=== PATIENT | female | born 2000 | race African-American/Black ===

== ENCOUNTER 2019-03-26 14:00 | Emergency (ER) | payer MEDICAID ==
[~2019-03-26] VITALS: Ht 167.6 cm; Wt 76.7 kg
[2019-03-26 14:12] VITALS: BP 119/69
[2019-03-26 14:42] LABS: Basophils # (auto) 0 uL; Basophils % (auto) 0.4 % (0.0-2.0); Eosinophils # (auto) 0.1 uL; Eosinophils % (auto) 0.5 % (0.0-7.0); Hematocrit 38.9 % (36.0-46.0); Hemoglobin 12.7 g/dL (12.2-16.2); Lymphocytes # (auto) 1.1 uL; Lymphocytes % (auto) 10.4 % (10.0-50.0); Mean Corpuscular Hemoglobin 30.1 pg (28.0-32.0); Mean Corpuscular Hgb Conc. 32.7 g/dL (32.0-36.0); Monocytes # (auto) 0.5 uL; Monocytes % (auto) 4.8 % (0.0-12.0); Neutrophils # (auto) 8.6 uL; Neutrophils % (auto) 83.9 % (37.0-80.0); Platelet Count (auto) 250 10^3/uL (140-450); Red Blood Cells 4.23 10^6/uL (4.0-5.20); Red Cell Distribution Width 14.4 % (11.8-14.3); White Blood Cell 10.2 10^3/uL (4.4-10.8)
[2019-03-26 14:57] LABS: Albumin 3.7 g/dL (3.4-5.0); BUN/Creatinine Ratio 6.9; Calcium 9.3 mg/dL (8.5-10.1); Potassium 3.8 mmol/L (3.5-5.1)
[2019-03-26 14:59] LABS: Bilirubin, Total 0.3 mg/dL (0.2-1.0); Total Protein 7.7 g/dL (6.4-8.2)
== END 2019-03-26 17:05 | disposition home or self-care (01) ==
LOC: ER 14:00
DX: O26.891 Other specified pregnancy related conditions, first trimester (principal); N89.8 Other specified noninflammatory disorders of vagina; Z88.5 Allergy status to narcotic agent; Z3A.12 12 weeks gestation of pregnancy
CPT/HCPCS: 36415; 76801; 80053; 84702; 85025

== ENCOUNTER 2019-07-20 11:23 | Observation (INO) | payer MEDICAID ==
[~2019-07-20] VITALS: Ht 167.6 cm; Wt 77.6 kg
[2019-07-20 11:27] VITALS: BP 131/65
[2019-07-20 12:15] LABS: Urine Bacteria FEW /hpf (None Seen); Urine Blood Negative /uL (Negative); Urine Mucus FEW (None Seen); Urine Specific Gravity 1.022 (1.001-1.035); Urine WBC 45 /hpf (0 - 5)
[2019-07-20 12:52] LABS: Alcohol, Urine < 3.0 mg/dL (0-5); Amphetamine Screen, Urine NEGATIVE (NEGATIVE); Barbiturate Scree,Urine NEGATIVE (NEGATIVE); Benzodiazephine Screen, Urine NEGATIVE (NEGATIVE); Cannabinoid Screen, Urine NEGATIVE (NEGATIVE); Cocaine Screen, Urine NEGATIVE (NEGATIVE); Opiate Scree,Urine NEGATIVE (NEGATIVE); Phencyclidine Screen, Urine NEGATIVE (NEGATIVE)
== END 2019-07-20 13:34 | disposition home or self-care (01) | DRG 566 ==
LOC: ER 11:29 → LDRP 11:30 → UNDOADMOB 11:30 → LDRP 11:40
PROVIDERS: ADMIT Obstetrics & Gynecology; ATTEND Obstetrics & Gynecology
DX: O26.892 Other specified pregnancy related conditions, second trimester (principal); R10.2 Pelvic and perineal pain; R10.9 Unspecified abdominal pain; Z3A.27 27 weeks gestation of pregnancy; Z98.891 History of uterine scar from previous surgery
CPT/HCPCS: 59025; 80307; 81001; 81002; 84112; 99284; G0378

== ENCOUNTER 2019-07-25 11:29 | Observation (INO) | payer MEDICAID ==
[~2019-07-25] VITALS: Ht 167.6 cm; Wt 86.2 kg
[2019-07-25 12:43] LABS: Urine Bacteria MOD /hpf (None Seen); Urine Blood Negative /uL (Negative); Urine Mucus FEW (None Seen); Urine WBC 49 /hpf (0 - 5)
[2019-07-25] MEDS ORDERED: SODIUM CHLORIDE 0.9% 1,000 ML IV ONE (12:45)
[2019-07-25] MEDS ORDERED: cefTRIAXone 1GM/50ML D5W 50 ML IV ONE (13:07)
[2019-07-25] MEDS ORDERED: TERBUTALINE SULFATE 1 MG/ML 1ML VIAL SC ONE (14:24)
[2019-07-25] MEDS ORDERED: TERBUTALINE SULFATE 1 MG/ML 1ML VIAL SC SCH (14:30)
[2019-07-26] MEDS ORDERED: cefTRIAXone 1GM/50ML D5W 50 ML IV SCH (09:00)
== END 2019-07-25 15:25 | disposition home or self-care (01) | DRG 563 ==
LOC: LDRP 11:29
PROVIDERS: ADMIT Specialist; ATTEND Specialist
DX: O60.03 Preterm labor without delivery, third trimester (principal); Z3A.30 30 weeks gestation of pregnancy
CPT/HCPCS: 59025; 76818; 81001; 81002; 96372; G0378; J0696; J3105

== ENCOUNTER 2019-08-13 12:02 | Observation (INO) | payer MEDICAID ==
[2019-08-13] MEDS ORDERED: PREN-96 PO (13:36)
[2019-08-13] MEDS ORDERED: NIF10C PO (13:36)
== END 2019-08-13 13:30 | disposition home or self-care (01) | DRG 563 ==
LOC: LDRP 12:02
PROVIDERS: ADMIT Specialist; ATTEND Specialist
DX: O60.03 Preterm labor without delivery, third trimester (principal); Z3A.32 32 weeks gestation of pregnancy
CPT/HCPCS: 59025; 81002; G0378

== ENCOUNTER 2019-09-16 13:13 | Observation (INO) | payer MEDICAID ==
[~2019-09-16] VITALS: Ht 167.6 cm; Wt 90.7 kg
[~2019-09-16 13:13] MED LIST: NIF10C PO; PREN-96 PO
[2019-09-16 13:23] VITALS: BP 142/88
[2019-09-16] MEDS ORDERED: TERBUTALINE SULFATE 1 MG/ML 1ML VIAL SC ONE ×2 (15:00→16:30)
[2019-09-16] MEDS ORDERED: LACTATED RINGER'S 1,000 ML IV ONE (15:00)
[2019-09-16] MEDS ORDERED: NIFEdipine 10 MG CAP ONE (15:12)
[2019-09-16] MEDS ORDERED: NIFEdipine 10 MG CAP PO ONE (15:30)
[2019-09-16 18:39] LABS: Basophils # (auto) 0 10 ^3/uL (0-0.2); Basophils % (auto) 0.3 % (0.0-2.0); Eosinophils # (auto) 0 10 ^3/uL (0-0.8); Eosinophils % (auto) 0.1 % (0.0-7.0); Hematocrit 30.7 % (36.0-46.0); Hemoglobin 9.8 g/dL (12.2-16.2); Lymphocytes # (auto) 1.4 10 ^3/uL (0.4-5.4); Lymphocytes % (auto) 11.8 % (10.0-50.0); Mean Corpuscular Hemoglobin 28.8 pg (28.0-32.0); Mean Corpuscular Hgb Conc. 31.9 g/dL (32.0-36.0); Mean Corpuscular Volume 90.4 fL (80.0-100.0); Monocytes % (auto) 8.3 % (0.0-12.0); Neutrophils # (auto) 9.5 10 ^3/uL (1.6-8.6); Neutrophils % (auto) 79.5 % (37.0-80.0); Nucleated Red Blood Cells % 0.1 %; Platelet Count (auto) 207 10^3/uL (140-450); Red Cell Distribution Width 16.7 % (11.8-14.3); White Blood Cell 11.9 10^3/uL (4.4-10.8)
[2019-09-16 18:54] LABS: Albumin 2.9 g/dL (3.4-5.0); Calcium 8.7 mg/dL (8.5-10.1); INR 0.94 (0.9-1.15); Partial Thromboplastin Time 29.4 sec (23.64-32.05); Potassium 3.4 mmol/L (3.5-5.1)
[2019-09-16 18:56] LABS: BUN/Creatinine Ratio 10.3
[2019-09-16 18:59] LABS: Bilirubin, Total 0.3 mg/dL (0.2-1.0); Total Protein 7.2 g/dL (6.4-8.2)
[2019-09-18 08:07] LABS: RPR Non Reactive (Non Reactive)
== END 2019-09-16 19:25 | disposition home or self-care (01) | DRG 566 ==
LOC: ER 13:13 → LDRP 13:33
PROVIDERS: ADMIT Obstetrics & Gynecology; ATTEND Obstetrics & Gynecology
DX: O62.9 Abnormality of forces of labor, unspecified (principal); O99.52 Diseases of the respiratory system complicating childbirth; J45.909 Unspecified asthma, uncomplicated; Z3A.37 37 weeks gestation of pregnancy
CPT/HCPCS: 36415; 59025; 76818; 80053; 81002; 84112; 85025; 85610; 85730; 86592; 86850; 86900; 86901; 96372; 99284; G0378; J3105; 96365; 96366

== ENCOUNTER 2019-09-26 04:15 | Inpatient (IN) | payer MEDICAID ==
[~2019-09-26] VITALS: Ht 167.6 cm; Wt 85.3 kg
[2019-09-26] VITALS (14 sets, daily range): BP systolic 93–125; BP diastolic 49–88
[2019-09-26 05:29] LABS: Basophils # (auto) 0 10 ^3/uL (0-0.2); Basophils % (auto) 0.4 % (0.0-2.0); Eosinophils # (auto) 0 10 ^3/uL (0-0.8); Eosinophils % (auto) 0.3 % (0.0-7.0); Hematocrit 29.5 % (36.0-46.0); Hemoglobin 9.9 g/dL (12.2-16.2); Lymphocytes # (auto) 1.6 10 ^3/uL (0.4-5.4); Lymphocytes % (auto) 15.8 % (10.0-50.0); Mean Corpuscular Hemoglobin 30.4 pg (28.0-32.0); Mean Corpuscular Hgb Conc. 33.7 g/dL (32.0-36.0); Mean Corpuscular Volume 90.3 fL (80.0-100.0); Monocytes # (auto) 1.1 10 ^3/uL (0-1.3); Monocytes % (auto) 10.8 % (0.0-12.0); Neutrophils # (auto) 7.6 10 ^3/uL (1.6-8.6); Neutrophils % (auto) 72.7 % (37.0-80.0); Nucleated Red Blood Cells % 0.1 %; Platelet Count (auto) 203 10^3/uL (140-450); Red Blood Cells 3.26 10^6/uL (4.0-5.20); Red Cell Distribution Width 17.3 % (11.8-14.3); White Blood Cell 10.4 10^3/uL (4.4-10.8)
[2019-09-26 05:35] LABS: Urine Bacteria FEW /hpf (None Seen); Urine Blood Negative /uL (Negative); Urine Mucus FEW (None Seen); Urine Specific Gravity 1.011 (1.001-1.035); Urine WBC 5 /hpf (0 - 5)
[2019-09-26 05:41] LABS: INR 0.96 (0.9-1.15); Partial Thromboplastin Time 30.8 sec (23.64-32.05)
[2019-09-26 05:44] LABS: Albumin 3.1 g/dL (3.4-5.0); Calcium 8.7 mg/dL (8.5-10.1); Potassium 3.7 mmol/L (3.5-5.1)
[2019-09-26 05:48] LABS: BUN/Creatinine Ratio 8.8; Bilirubin, Total 0.4 mg/dL (0.2-1.0)
[2019-09-26 05:51] LABS: Alcohol, Urine < 3.0 mg/dL (0-5); Amphetamine Screen, Urine NEGATIVE (NEGATIVE); Barbiturate Scree,Urine NEGATIVE (NEGATIVE); Benzodiazephine Screen, Urine NEGATIVE (NEGATIVE); Cannabinoid Screen, Urine NEGATIVE (NEGATIVE); Cocaine Screen, Urine NEGATIVE (NEGATIVE); Opiate Scree,Urine NEGATIVE (NEGATIVE); Phencyclidine Screen, Urine NEGATIVE (NEGATIVE)
--- NOTE | 2019-09-26 06:20 | NUR ---
Teaching: Discussed benefits of and risks associated with not . Patient desires to bottle feed . Patient verbalized understanding of information.
--- NOTE | 2019-09-26 06:20 | NUR ---
Bottle-feeding Education: Patient encouraged to breastfeed. Benefits of and the risk of providing formula to was discussed. Patient verbalized understanding of the benefits and is aware of risk and insists on bottle-feeding. Formula provided and instruction on formula preperation from the [employer] booklet reviewed with patient.
[2019-09-26] MEDS ORDERED: LACTATED RINGER'S 1,000 ML IV SCH (06:28)
[2019-09-26] MEDS ORDERED: LIDOCAINE 1% HCL (LOCAL ANESTH.) INJ 20ML MDV ONE (07:08)
[2019-09-26] MEDS ORDERED: MORPHINE SULF(PF) 0.5MG/ML 10ML VIAL ONE (07:11)
[2019-09-26] MEDS ORDERED: fentaNYL CITRATE 100 MCG/2 ML VL ONE (07:12)
[2019-09-26] MEDS ORDERED: ceFAZolin 1GM VL ONE (07:12)
[2019-09-26] MEDS ORDERED: MIDAZOLAM HCL 1MG/1ML-2 ML VIAL ONE ×2 (07:12→08:46)
[2019-09-26] MEDS ORDERED: oxyTOCIN 10 UNIT/ML 10ML VIAL ONE (07:12)
[2019-09-26] MEDS ORDERED: ONDANSETRON HCL 4 MG/2 ML VIAL ONE (07:12)
[2019-09-26] MEDS ORDERED: EPINEPHrine HCL 1 MG/1 ML AMP ONE (07:12)
[2019-09-26] MEDS ORDERED: SODIUM CHLORIDE LOCK 10 ML ONE (07:12)
[2019-09-26] MEDS ORDERED: TETRACAINE 1% INJ 2 ML VIAL IJ ONE (07:13)
[2019-09-26] MEDS ORDERED: KETOROLAC TROMETH 15 mg/ml 1ML VL IV ONE (09:15)
[2019-09-26] MEDS ORDERED: ceFAZolin 1GM/50ML 50 ML IV SCH (09:15)
[2019-09-26] MEDS ORDERED: ONDANSETRON HCL 4 MG/2 ML VIAL IV PRN (09:15)
[2019-09-26] MEDS ORDERED: HYDROmorphone HCL 2 MG/ML VL IV PRN (09:15)
[2019-09-26] MEDS ORDERED: fentaNYL CITRATE 100 MCG/2 ML VL IV PRN (09:15)
[2019-09-26] MEDS ORDERED: METOCLOPRAMIDE HCL 5MG/ml INJ 2ml VIAL IV PRN (09:15)
[2019-09-26] MEDS ORDERED: ACETAMINOPHEN IV 1000 MG/100ML (10MG/ML) IV PRN (09:15)
--- NOTE | 2019-09-26 10:00 | NUR ---
Post Op for LDRP: Received patient from PACU via bed to room 7B. Report recieved form Anh ATKINS. Patient A/A/Ox4, abdominal binder and bilateral SCD's are in place, IV fluids placed on pump and infusing per order, incisional site dressing clean/dry/intact and Cheng Catheter to gravity draining clear yellow urine. Incentive Spirometer at bedside and instruction on proper use with return demonstration done by patient.
--- NOTE | 2019-09-26 10:36 | NUR ---
Spoke with Dr Anand, orders received to discontinue pitocin and infuse LR as ordered, pt with c/o itching, orders received
[2019-09-26] MEDS: LACTATED RINGER'S 1,000 ML IV SCH ×2 (10:45→17:56)
--- NOTE | 2019-09-26 10:55 | NUR ---
Report received from Darion Perez RN and Darion Noel RN on stable pt. Assumed care.
[2019-09-26] MEDS: diphenhdrAMINE HCL 50 MG/1 ML VL IV PRN ×2 (11:04→20:45)
[2019-09-26] MEDS ORDERED: ACETAMINOPHEN IV 100 ML IV ONE (14:02)
--- NOTE | 2019-09-26 14:21 | NUR ---
Dilia care and catheter care performed. New under pad and dilia pad placed. Pt tolerated well. No signs of distress or discomfort noted.
[2019-09-26] MEDS: ceFAZolin 1GM/50ML 50 ML IV SCH (16:19)
--- NOTE | 2019-09-26 16:30 | NUR ---
Dilia care and catheter care performed. New under pad and dilia pad applied.
--- NOTE | 2019-09-26 18:30 | NUR ---
Report given to Jemma Cristobal RN on stable pt. Relinquished care. Addendum: 09/26/19 at 1835 by Trudy Croft RN Amended: Links added.
--- NOTE | 2019-09-26 18:45 | NUR ---
ASSESSMENT COMPLETED V/S OBTAINED AND STABLE. LEFTY CARE GIVEN. IV SITE BENIGN IV FLUIDS ORDERED INSTRUCTED PT TO NOTIFY STAFF IF EXP ANY PROBLEMS OR HAS ANY CONCERNS, CALL BURGOS WITHIN REACH, NO DISTRESS NOTED WILL CONTINUE TO MONITOR
[2019-09-26] MEDS: HYDROmorphone HCL 2 MG/ML VL IV PRN ×2 (18:53→22:55)
--- NOTE | 2019-09-26 23:10 | NUR ---
Preparing pt for ambulation. Cheng catheter emptied 400 ml's of clear yellow urine noted fundus firm below the umb, lochia is light, dilia care given, instructions given on dilia care pt verbalizes understanding pt sitting on edge of bed no c/o dizziness at this time. Pt up and ambulated to chair without difficulty, Pt states she wants to walk. with this RN at pt's side pt able to ambulate in the hallway, ambulate with steady gait. no c/o of dizziness. ambulated back to room and request to sit in chair. Call cabrera within reach instructed to notify staff if exp any problems or has any concern, P remain sitting thierno call cabrera wtihin reach will continue to monitor
[2019-09-27] MEDS: ceFAZolin 1GM/50ML 50 ML IV SCH ×2 (00:34→08:31)
[2019-09-27] MEDS: diphenhdrAMINE HCL 50 MG/1 ML VL IV PRN ×2 (02:17→06:44)
[2019-09-27] MEDS: HYDROmorphone HCL 2 MG/ML VL IV PRN ×2 (02:28→06:35)
[2019-09-27 03:00] VITALS: BP 116/71
[2019-09-27 06:40] LABS: Basophils # (auto) 0 10 ^3/uL (0-0.2); Basophils % (auto) 0.2 % (0.0-2.0); Eosinophils # (auto) 0 10 ^3/uL (0-0.8); Eosinophils % (auto) 0.2 % (0.0-7.0); Hematocrit 30.8 % (36.0-46.0); Hemoglobin 10.1 g/dL (12.2-16.2); Lymphocytes # (auto) 1.1 10 ^3/uL (0.4-5.4); Lymphocytes % (auto) 8.7 % (10.0-50.0); Mean Corpuscular Hemoglobin 29.7 pg (28.0-32.0); Mean Corpuscular Hgb Conc. 32.7 g/dL (32.0-36.0); Mean Corpuscular Volume 90.7 fL (80.0-100.0); Monocytes # (auto) 1.3 10 ^3/uL (0-1.3); Monocytes % (auto) 10.1 % (0.0-12.0); Neutrophils # (auto) 10.1 10 ^3/uL (1.6-8.6); Neutrophils % (auto) 80.8 % (37.0-80.0); Nucleated Red Blood Cells % 0.1 %; Platelet Count (auto) 201 10^3/uL (140-450); Red Blood Cells 3.39 10^6/uL (4.0-5.20); Red Cell Distribution Width 18.1 % (11.8-14.3); White Blood Cell 12.5 10^3/uL (4.4-10.8)
[2019-09-27 07:00] VITALS: BP 120/68
[2019-09-27 07:06] LABS: RPR Non Reactive (Non Reactive)
[2019-09-27] MEDS: LACTATED RINGER'S 1,000 ML IV SCH ×2 (08:00→09:10)
[2019-09-27] MEDS: traMADol HCL 50 MG TAB PO PRN ×2 (09:36→22:31)
[2019-09-27] MEDS: DOCUSATE SOD 100 MG CAP PO SCH ×2 (10:00→22:33)
[2019-09-27 11:13] VITALS: BP 120/56
--- NOTE | 2019-09-27 11:15 | NUR ---
temperature-99.7,dr. turner was called and updated on patient's temperature,received order to start giving tylenol 650 mg po for temperature q 4 hrs prn.
[2019-09-27] MEDS ORDERED: ACETAMINOPHEN 325 MG TAB PO PRN ×3 (11:30→12:30)
[2019-09-27] MEDS: IBUPROFEN 800 MG TAB PO PRN (15:04)
[2019-09-27 15:23] VITALS: BP 129/71
--- NOTE | 2019-09-27 15:30 | NUR ---
patient complained of pain on the iv site and wanted it to be removed.iv line removed and discontinued.2x2 pressure dressing applied.no bleeding noted.will continue to monitor.
[2019-09-27 19:00] VITALS: BP 127/72
--- NOTE | 2019-09-27 19:20 | NUR ---
Dr. Anand at bedside exam completed by Dr. Jacobo and evette orr discussed with pt. Pt verbalizes understanding. no distress noted will continue to monitor. Call cabrera within reach
[2019-09-27 23:00] VITALS: BP 127/77
[2019-09-28] MEDS: IBUPROFEN 800 MG TAB PO PRN ×3 (02:45→22:43)
[2019-09-28 02:55] VITALS: BP 125/50
[2019-09-28 06:41] VITALS: BP 117/71
[2019-09-28] MEDS: DOCUSATE SOD 100 MG CAP PO SCH ×2 (09:47→20:51)
[2019-09-28] MEDS: traMADol HCL 50 MG TAB PO PRN ×2 (09:50→20:52)
[2019-09-28] MEDS ORDERED: BISACODYL 10 MG RECT SUPP PR PRN (11:00)
[2019-09-28 11:15] VITALS: BP 118/59
[2019-09-28 15:15] VITALS: BP 125/71
[2019-09-28 18:52] VITALS: BP 122/69
--- NOTE | 2019-09-28 21:30 | NUR ---
Out of bed to shower
--- NOTE | 2019-09-28 21:53 | NUR ---
Out of bed ambulating throughout unit
[2019-09-28 23:00] VITALS: BP 123/73
[2019-09-29] MEDS: traMADol HCL 50 MG TAB PO PRN (02:39)
[2019-09-29 02:51] VITALS: BP 108/67
[2019-09-29 07:30] VITALS: BP 119/70
--- NOTE | 2019-09-29 09:35 | NUR ---
Discharge: Patient taken to vehicle via wheelchair with all personal belongings, accompanied by staff and family member. No distress noted at time of departure, no adverse changes in status since initial assessment.
--- NOTE | 2019-09-29 09:35 | NUR ---
Discharge: Discharge instructions given as ordered. Pt encouraged to follow up with [employer] [employer]ATOR as instructed. All questions and concerns addressed. Patient verbalized understanding. Medication reconciliation completed and copy given to patient. Patient refused t-dap, influenza. Patient encouraged to prepare to depart unit.
== END 2019-09-29 09:35 | disposition home or self-care (01) | DRG 540 ==
LOC: LDRP 04:15
PROVIDERS: ADMIT Specialist; ATTEND Specialist
PROC: 10D00Z1 Extraction of Products of Conception, Low, Open Approach (ICD-10-PCS; principal; 2019-09-26 08:01)
DX: O34.211 Maternal care for low transverse scar from previous cesarean delivery (principal); O69.2XX0 Labor and delivery complicated by other cord entanglement, with compression, not applicable or unspecified; Z37.0 Single live birth; Z3A.39 39 weeks gestation of pregnancy; Z88.5 Allergy status to narcotic agent; Z79.899 Other long term (current) drug therapy
CPT/HCPCS: 36415; 51702; 59025; 80053; 80307; 81001; 81002; 84112; 85025; 85610; 85730; 86592; 86850; 86900; 86901; 94760; 96361; 96366; 96374; G0378; J0131; J0171; J0690; J2001; J2250; J2405; J2590

== ENCOUNTER 2021-12-21 08:31 | Emergency (ER) | payer MEDICAID ==
[~2021-12-21] VITALS: Ht 170.2 cm; Wt 101.2 kg
[~2021-12-21 08:31] MED LIST changes: -NIF10C PO
[2021-12-21] MEDS ORDERED: ACETAMINOPHEN 325 MG TAB PO ONE (09:00)
[2021-12-21 09:17] VITALS: BP 119/56
[2021-12-21 09:33] LABS: Urine Bacteria FEW /hpf (None Seen); Urine Blood 3+ /uL (Negative); Urine Mucus FEW (None Seen); Urine Specific Gravity 1.023 (1.001-1.035); Urine WBC 28 /hpf (0 - 5)
[2021-12-21] MEDS ORDERED: cefTRIAXone SOD 1,000 MG VL IM ONE (11:30)
[2021-12-21] MEDS ORDERED: IBUP800T27 PO (11:30)
[2021-12-21] MEDS ORDERED: SULF800T7 PO (11:30)
[2021-12-21] MEDS ORDERED: LIDOCAINE 1%HCL (LOCAL ANESTH) 10 ML MDV ONE (12:10)
== END 2021-12-21 12:21 | disposition home or self-care (01) ==
LOC: ER 08:31
DX: N39.0 Urinary tract infection, site not specified (principal); N83.202 Unspecified ovarian cyst, left side; N83.201 Unspecified ovarian cyst, right side; J45.909 Unspecified asthma, uncomplicated; Z32.02 Encounter for pregnancy test, result negative; Z88.6 Allergy status to analgesic agent
CPT/HCPCS: 76830; 76856; 81001; 81025; 99284; J0696; J2001

== ENCOUNTER 2022-04-04 18:22 | Emergency (ER) | payer MEDICAID ==
[~2022-04-04 18:22] MED LIST changes: +IBUP800T27 PO; +SULF800T7 PO
== END 2022-04-04 19:02 | disposition left against medical advice (07) ==
LOC: ER 18:24
DX: N93.9 Abnormal uterine and vaginal bleeding, unspecified (principal); Z53.21 Procedure and treatment not carried out due to patient leaving prior to being seen by health care provider

== ENCOUNTER 2022-09-15 09:12 | Emergency (ER) | payer MEDICAID ==
[~2022-09-15] VITALS: Ht 170.2 cm; Wt 104.5 kg
[2022-09-15 09:32] VITALS: BP 104/56
[2022-09-15 10:14] LABS: Basophils # (auto) 0 10 ^3/uL (0-0.2); Basophils % (auto) 0.3 % (0.0-2.0); Eosinophils # (auto) 0.1 10 ^3/uL (0-0.8); Eosinophils % (auto) 1.4 % (0.0-7.0); Hematocrit 37.9 % (36.0-46.0); Hemoglobin 12.3 g/dL (12.2-16.2); Lymphocytes # (auto) 0.6 10 ^3/uL (0.4-5.4); Lymphocytes % (auto) 6.2 % (10.0-50.0); Mean Corpuscular Hemoglobin 28.6 pg (28.0-32.0); Mean Corpuscular Hgb Conc. 32.4 g/dL (32.0-36.0); Mean Corpuscular Volume 88.3 fL (80.0-100.0); Monocytes % (auto) 10.3 % (0.0-12.0); Neutrophils # (auto) 8.1 10 ^3/uL (1.6-8.6); Neutrophils % (auto) 81.8 % (37.0-80.0); Nucleated Red Blood Cells % 0.1 %; Red Cell Distribution Width 14.9 % (11.8-14.3); White Blood Cell 9.9 10^3/uL (4.4-10.8)
[2022-09-15 10:51] LABS: Albumin 3.7 g/dL (3.4-5.0); BUN/Creatinine Ratio 9.7; Bilirubin, Total 0.2 mg/dL (0.2-1.0); Calcium 8.4 mg/dL (8.5-10.1); Total Protein 7.6 g/dL (6.4-8.2)
[2022-09-15 12:02] LABS: Urine Bacteria FEW /hpf (None Seen); Urine Blood Negative /uL (Negative); Urine Mucus FEW (None Seen); Urine Specific Gravity 1.016 (1.001-1.035); Urine WBC 2 /hpf (0 - 5)
[2022-09-15] MEDS ORDERED: CEPH-322 PO ×3 (14:16→14:29)
== END 2022-09-15 15:14 | disposition home or self-care (01) ==
LOC: EDBD 09:12 → EDUNIT# 09:12 → ER 09:12
DX: N30.00 Acute cystitis without hematuria (principal); J45.909 Unspecified asthma, uncomplicated; Z88.5 Allergy status to narcotic agent; Z79.899 Other long term (current) drug therapy; Z98.890 Other specified postprocedural states
CPT/HCPCS: 36415; 80053; 81001; 81025; 85025

== ENCOUNTER 2022-11-07 09:20 | Emergency (ER) | payer MEDICAID ==
[~2022-11-07] VITALS: Ht 170.2 cm; Wt 100.0 kg
[~2022-11-07 09:20] MED LIST changes: +CEPH-322 PO
[2022-11-07 10:29] LABS: Basophils # (auto) 0.1 10 ^3/uL (0-0.2); Eosinophils # (auto) 0.2 10 ^3/uL (0-0.8); Eosinophils % (auto) 2.8 % (0.0-7.0); Hematocrit 35.7 % (36.0-46.0); Hemoglobin 11.5 g/dL (12.2-16.2); Lymphocytes # (auto) 1.6 10 ^3/uL (0.4-5.4); Lymphocytes % (auto) 23.3 % (10.0-50.0); Mean Corpuscular Hemoglobin 28.5 pg (28.0-32.0); Mean Corpuscular Hgb Conc. 32.2 g/dL (32.0-36.0); Mean Corpuscular Volume 88.6 fL (80.0-100.0); Monocytes # (auto) 0.5 10 ^3/uL (0-1.3); Monocytes % (auto) 7.4 % (0.0-12.0); Neutrophils # (auto) 4.4 10 ^3/uL (1.6-8.6); Neutrophils % (auto) 65.5 % (37.0-80.0); Red Blood Cells 4.03 10^6/uL (4.0-5.20); Red Cell Distribution Width 15.5 % (11.8-14.3); White Blood Cell 6.7 10^3/uL (4.4-10.8)
[2022-11-07 10:39] LABS: Albumin 3.8 g/dL (3.4-5.0); Calcium 9.4 mg/dL (8.5-10.1); Potassium 4.2 mmol/L (3.5-5.1)
[2022-11-07 10:45] LABS: BUN/Creatinine Ratio 12.2 (10.0-20.0); Bilirubin, Total 0.4 mg/dL (0.2-1.0); Total Protein 7.5 g/dL (6.4-8.2)
[2022-11-07 11:06] VITALS: BP 117/48
[2022-11-07] MEDS ORDERED: PENICILLIN G BENZ 1200000 UNITS/2 ML SYRG IM ONE (13:00)
== END 2022-11-07 13:29 | disposition home or self-care (01) ==
LOC: ER 09:20
DX: A53.9 Syphilis, unspecified (principal); J45.909 Unspecified asthma, uncomplicated; Z88.2 Allergy status to sulfonamides
CPT/HCPCS: 36415; 80053; 84702; 85025; 96372; 99283; J0561

== ENCOUNTER 2022-11-14 09:09 | Emergency (ER) | payer MEDICAID ==
[~2022-11-14] VITALS: Ht 170.2 cm; Wt 103.0 kg
[2022-11-14 09:21] VITALS: BP 106/68
[2022-11-14] MEDS ORDERED: PENICILLIN G BENZ 1200000 UNITS/2 ML SYRG IM STA (09:56)
== END 2022-11-14 10:39 | disposition home or self-care (01) ==
LOC: ER 09:09
DX: J45.909 Unspecified asthma, uncomplicated (principal); Z51.81 Encounter for therapeutic drug level monitoring; Z88.6 Allergy status to analgesic agent
CPT/HCPCS: 96372; 99283; J0561

== ENCOUNTER 2022-11-21 12:43 | Emergency (ER) | payer MEDICAID ==
[~2022-11-21] VITALS: Ht 170.2 cm; Wt 99.9 kg
[~2022-11-21 12:43] MED LIST changes: -CEPH-322 PO; +CEPH250C PO; +IBUP-1456 PO; -IBUP800T27 PO; +SULF800T23 PO; -SULF800T7 PO
[2022-11-21 17:56] VITALS: BP 130/87
== END 2022-11-21 17:58 | disposition left against medical advice (07) ==
LOC: ER 12:43
DX: A53.9 Syphilis, unspecified (principal); Z53.21 Procedure and treatment not carried out due to patient leaving prior to being seen by health care provider